=== PATIENT | female | born 1995 | race African-American/Black ===

== ENCOUNTER 2019-03-12 16:41 | Emergency (ER) | payer OTHER, MEDICAID ==
[2019-03-12] MEDS ORDERED: TETANUS/DIPHTHERIA/PERTUSSIS 0.5 ML SYRINGE IM ONE (17:06)
[2019-03-12] MEDS ORDERED: BUFFERED LIDOCAINE 10 ML SYRINGE SUBQ STA (17:06)
--- NOTE | 2019-03-12 17:08 | ED Physician Documentation ---
PD HPI UPPER EXT INJURY - Stated complaint Stated Complaint: L THUMB LAC - Chief complaint Chief Complaint: Laceration - History obtained from History obtained from: Patient - History of Present Illness Location: Left (Right-handed woman with unknown tetanus status cuts the dorsum of her left thumb at work just prior to arrival.) Review of Systems Constitutional: reports: Reviewed and negative Ears: reports: Reviewed and negative Throat: reports: Reviewed and negative PD PAST MEDICAL HISTORY - Past Medical History Past Medical History: No Cardiovascular: None Respiratory: None Neuro: None Endocrine/Autoimmune: None GI: None 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 : None HEENT: None Psych: ADD/ADHD Musculoskeletal: None Derm: None - Past Surgical History Past Surgical History: No - Present Medications Home Medications: Ambulatory Orders Medication Instructions Recorded Confirmed Ethynodiol D-Ethinyl Estradiol 1 each PO 07/18/13 07/18/13 [Zovia 1-35E] FLUoxetine [PROzac] 40 mg PO DAILY 07/18/13 07/18/13 Guanfacine HCl 1 mg PO BID 07/18/13 07/18/13 Melatonin 5 mg PO 07/18/13 07/18/13 Methylphenidate HCl 36 mg PO BID 07/18/13 07/18/13 [Methylphenidate ER] - Allergies Allergies/Adverse Reactions: Allergies Allergy/AdvReac Type Severity Reaction Status Date / Time No Known Drug Allergies Allergy Verified 03/12/19 16:46 - Social History Does the pt smoke?: No Smoking Status: Never smoker Does the pt drink ETOH?: Yes Does the pt have substance abuse?: No - Immunizations Immunizations are current?: Yes - POLST Patient has POLST: No PD ED PE NORMAL - Vitals Vital signs reviewed: Yes - General General: Alert and oriented X 3, No acute distress - Extremities Extremities: Other (At the level of the interphalangeal joint of the left thumb there is a 1.5 cm laceration over onto the ulnar side. She is partially but not In completely insensate distal to that. She describes sensation as about being half-strength.) - Neuro Neuro: Alert and oriented X 3, Normal speech Results - Vitals Vitals: Vital Signs - 24 hr 03/12/19 16:44 Temperature 36.3 C L Heart Rate 94 Respiratory 18 Rate Blood Pressure 136/90 H O2 Saturation 98 Oxygen O2 Source Room air Procedures - Laceration (location) L thumb Length in cm: 1.5 Wound type: Linear, Clean Neurovascular status: No: Sensory intact (prtial nerve inj) Tendon involvement: Tendon intact Anesthesia: Lidocaine 1%, With bicarb Wound Preparation: Irrigated copiously NS Skin layer closure: Nylon, Interrupted, Size #-0 - enter number (5-0), Sutures - enter # (4) Other: Tetanus booster given Complexity: Simple Departure - Departure Disposition: 01 Home, Self Care Clinical Impression: Finger laceration with complication Qualifiers: Encounter type: initial encounter Qualified Code(s): S61.219A - Laceration without foreign body of unspecified finger without damage to nail, initial encounter Condition: Good Record reviewed to determine appropriate education?: Yes Instructions: ED Laceration Hand Comments: As discussed you have a laceration with a partial nerve injury in your finger. You need to follow-up with hand surgeon within the next 3 days. The closest is in [place], call Dr. Swan at [phone] Subsequent to that for wound care keep it clean with soap and water and keep it covered with a bandage and Vaseline. The sutures need to come out in about 14 days.
[2019-03-12 18:05] VITALS: BP 121/89
== END 2019-03-12 18:06 | disposition home or self-care (01) ==
LOC: ED 16:41
DX: S61.012A Laceration without foreign body of left thumb without damage to nail, initial encounter (principal); W26.0XXA Contact with knife, initial encounter; Y99.0 Civilian activity done for income or pay
CPT/HCPCS: 1040M; 12001; 99282; 99283

== ENCOUNTER 2021-05-22 13:35 | Emergency (ER) | payer MEDICAID, OTHER ==
[2021-05-22 13:42] VITALS: BP 133/82
[2021-05-22] MEDS ORDERED: BUFFERED LIDOCAINE 10 ML SYRINGE SUBQ STA (13:52)
[2021-05-22] MEDS ORDERED: BACITRACIN ZINC OINT 1 PACKET TOP STA (13:52)
[2021-05-22] MEDS ORDERED: TETANUS/DIPHTHERIA/PERTUSSIS 0.5 ML SYRINGE IM ONE (13:52)
--- NOTE | 2021-05-22 14:22 | ED Physician Documentation ---
History of Present Illness - Stated complaint Stated Complaint: L PINKY LAC - Chief complaint Chief Complaint: Laceration - History obtained from History obtained from: Patient - Additonal information Additional information: 25-year-old woman Presents with left fifth finger laceration while cutting onions at work. This occurred just prior to arrival. She is unsure of her last tetanus. 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 : None HEENT: None Psych: ADD/ADHD Musculoskeletal: None Derm: None - Past Surgical History Past Surgical History: No - Present Medications Home Medications: Ambulatory Orders Medication Instructions Recorded Confirmed Ethynodiol D-Ethinyl Estradiol 1 each PO 07/18/13 07/18/13 [Zovia 1-35E] FLUoxetine [PROzac] 40 mg PO DAILY 07/18/13 07/18/13 Guanfacine HCl 1 mg PO BID 07/18/13 07/18/13 Melatonin 5 mg PO 07/18/13 07/18/13 Methylphenidate HCl 36 mg PO BID 07/18/13 07/18/13 [Methylphenidate ER] - Allergies Allergies/Adverse Reactions: Allergies Allergy/AdvReac Type Severity Reaction Status Date / Time No Known Drug Allergies Allergy Verified 05/22/21 13:39 - Social History Does the pt smoke?: No Smoking Status: Never smoker Does the pt drink ETOH?: Yes Does the pt have substance abuse?: No - Immunizations Immunizations are current?: Yes - POLST Patient has POLST: No PD ED PE NORMAL - Vitals Vital signs reviewed: Yes - General General: Alert and oriented X 3, No acute distress, Well developed/nourished - HEENT HEENT: Atraumatic, PERRL, EOMI - Derm Derm: Other (0.5 cm laceration of distal left fifth finger with involvement of the nail. No subungual hematoma or nailbed involvement. Laceration well approximated and superficial.) - Extremities Extremities: No deformity - Neuro Neuro: Alert and oriented X 3 - Psych Psych: Normal mood, Normal affect Results - Vitals Vitals: Vital Signs - 24 hr 05/22/21 13:39 Temperature 36.5 C Heart Rate 78 Respiratory 16 Rate Blood Pressure 133/82 H O2 Saturation 100 Oxygen O2 Source Room air Procedures - Laceration (location) Finger left Length in cm: 0.5 Wound type: Curved Neurovascular status: Sensory intact, Motor intact Tendon involvement: Tendon intact Anesthesia: Lidocaine 1%, With bicarb Wound preparation: Irrigated copiously NS, Wound explored, To the base. No: FB identified Skin layer closure: Dermabond Other: Patient tolerated well, No complications, Neurovascular intact, Tetanus booster given PD MEDICAL DECISION MAKING - ED course ED course: 25-year-old woman presented with superficial well approximated laceration of the left fifth finger after cutting vegetables. [id number]. Laceration repaired with Dermabond after cleaning extensively. Return precautions given. Departure - Departure Disposition: 01 Home, Self Care Clinical Impression: Laceration of finger Condition: Good Instructions: ED Laceration Ext Skin Glue Comments: You are seen in the emergency department for laceration of your finger. I repai red it with Dermabond skin glue. Allow it to fall off on its own and monitor for any signs of infection. Return to the emergency department if you have any new or worsening symptoms or other concerns. We updated your tetanus shot and you should be good for 10 years.
== END 2021-05-22 14:25 | disposition home or self-care (01) ==
LOC: ED 13:35
DX: S61.317A Laceration without foreign body of left little finger with damage to nail, initial encounter (principal); W26.0XXA Contact with knife, initial encounter; Y93.G1 Activity, food preparation and clean up; Y99.0 Civilian activity done for income or pay; Z23 Encounter for immunization
CPT/HCPCS: 1040M; 12001; 90471; 90715; 99281; 99283; A9270

== ENCOUNTER 2021-08-27 13:44 | Emergency (ER) | payer MEDICAID | END 2021-08-27 13:52 | disposition left against medical advice (07) | LOC: ED 13:44 | DX: Z53.21 Procedure and treatment not carried out due to patient leaving prior to being seen by health care provider (principal) ==

== ENCOUNTER 2021-10-08 09:46 | Outpatient (CLI) | payer MEDICAID ==
[2021-10-08 12:15] LABS: BASOPHILS # (AUTO) 0.1 10^3/uL (0.0-0.1); EOSINOPHILS # (AUTO) 0.2 10^3/uL (0.0-0.7); EOSINOPHILS % (AUTO) 2.8 %; HCT - HEMATOCRIT 37.3 % (37.0-47.0); HGB - HEMOGLOBIN 11.9 g/dL (12.0-16.0); LYMPHOCYTES # (AUTO) 3.1 10^3/uL (1.5-3.5); LYMPHOCYTES % (AUTO) 44.3 %; MEAN CORPUSCULAR HEMOGLOBIN 26.4 pg (27.0-31.0); MEAN CORPUSCULAR HGB CONC 31.9 g/dL (32.0-36.0); MEAN CORPUSCULAR VOLUME 82.9 fL (81.0-99.0); MEAN PLATELET VOLUME 12.3 fL (7.9-10.8); MONOCYTES # (AUTO) 0.4 10^3/uL (0.0-1.0); MONOCYTES % (AUTO) 6.1 %; NEUTROPHILS # (AUTO) 3.1 10^3/uL (1.5-6.6); NEUTROPHILS % (AUTO) 45.7 %; PLT - PLATELET COUNT 312 10^3/uL (130-450); RED CELL DISTRIBUTION WIDTH 15.7 % (12.0-15.0); WHITE BLOOD COUNT 6.9 x10^3/uL (4.8-10.8)
[2021-10-08 12:34] LABS: ALBUMIN 4.1 g/dL (3.2-5.5); ALBUMIN/GLOBULIN RATIO 1.2 (1.0-2.2); ALKALINE PHOSPHATASE 49 IU/L (42-121); ALT ALANINE AMINOTRANSFERASE 17 IU/L (10-60); AST ASPARTATE AMINOTRANSFERASE 15 IU/L (10-42); BILIRUBIN,TOTAL 0.6 mg/dL (0.2-1.0); BUN - BLOOD UREA NITROGEN 15 mg/dL (6-20); CALCIUM 9.2 mg/dL (8.5-10.3); CARBON DIOXIDE - CO2 28 mmol/L (21-32); CHLORIDE 102 mmol/L (101-111); CHOLESTEROL 197 mg/dL; CREATININE 0.9 mg/dL (0.4-1.0); GFR - MDRD 93 (>89); GLUCOSE 96 mg/dL (70-100); HDL CHOLESTEROL 66 mg/dL; LDL CHOLESTEROL,CALCULATED 113 mg/dL; LDL/HDL RATIO 1.7 (<4.4); SODIUM 137 mmol/L (135-145); TOTAL PROTEIN 7.6 g/dL (6.7-8.2); TRIGLYCERIDES 90 mg/dL; VLDL CHOLESTEROL 18 mg/dL
[2021-10-08 12:41] LABS: THYROID STIMULATING HORMONE 1.93 uIU/mL (0.34-5.60)
== END 2021-10-08 09:47 | disposition home or self-care (01) ==
LOC: LAB.N 09:46
PROVIDERS: ATTEND Physician Assistant Medical
DX: Z00.00 Encounter for general adult medical examination without abnormal findings (principal)
CPT/HCPCS: 36415; 80053; 80061; 83721; 84443; 85025

== ENCOUNTER 2021-10-25 11:05 | Emergency (ER) | payer MEDICAID ==
--- NOTE | 2021-10-25 11:53 | ED Physician Documentation ---
PD HPI SYNCOPE - Stated complaint Stated Complaint: FAINTING, CONFUSION - Chief complaint Chief Complaint: Neuro - History obtained from History obtained from: Patient - History of Present Illness Witnessed: Unwitnessed Timing - onset: How many days ago (she states has felt lightheaded at times the past few days, with presumed syncope today (she flet lightheaded, then awoke in other part of the room - not feeling injured).) Duration: Unknown Preceding symptoms: Light headed. No: Headache, Chest pain, Abdominal pain, Nausea / vomiting Associated symptoms: Abdominal pain. No: Seizure, Incontinant of urine, Headache, Chest pain Contributing factors: Recent med change (started fluoxetine and guianfacine 2 weeks ago at low doses. Had been on both in the past about a year ago, stopped due to doing well. Resumed meds 2 weeks ago.), Decreased PO intake (the past day or so), Just stood up. No: Noxious stimulae Injury occurred: No: Fell, Head injury, Neck injury Similar symptoms before: Has not had sx before Recently seen: Clinic Review of Systems Constitutional: denies: Fever, Chills Nose: denies: Rhinorrhea / runny nose, Congestion Throat: denies: Sore throat Respiratory: denies: Cough GI: reports: Nausea. 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 : None HEENT: None Psych: Anxiety, ADD/ADHD Musculoskeletal: None Derm: None - Past Surgical History Past Surgical History: No - Present Medications Home Medications: Ambulatory Orders Medication Instructions Recorded Confirmed Ethynodiol D-Ethinyl Estradiol 1 each PO 07/18/13 07/18/13 [Zovia 1-35E] FLUoxetine [PROzac] 40 mg PO DAILY 07/18/13 07/18/13 Guanfacine HCl 1 mg PO BID 07/18/13 07/18/13 Melatonin 5 mg PO 07/18/13 07/18/13 Methylphenidate HCl 36 mg PO BID 07/18/13 07/18/13 [Methylphenidate ER] - Allergies Allergies/Adverse Reactions: Allergies Allergy/AdvReac Type Severity Reaction Status Date / Time No Known Drug Allergies Allergy Verified 10/25/21 11:20 - Social History Does the pt smoke?: No Smoking Status: Never smoker Does the pt drink ETOH?: Yes Does the pt have substance abuse?: No - Immunizations Immunizations are current?: Yes - POLST Patient has POLST: No PD ED PE NORMAL - Vitals Vital signs reviewed: Yes - General General: Alert and oriented X 3, No acute distress, Well developed/nourished - HEENT HEENT: Atraumatic, PERRL, EOMI - Neck Neck: Supple, no meningeal sign, No bony TTP, No adenopathy - Cardiac Cardiac: RRR, No murmur - Respiratory Respiratory: Clear bilaterally - Abdomen Abdomen: Soft, Non tender - Back Back: No CVA TTP, No spinal TTP - Derm Derm: Normal color - Extremities Extremities: No tenderness to palpate, Normal ROM s pain, No edema, No calf tenderness / cord - Neuro Neuro: Alert and oriented X 3, No motor deficit, Normal speech Results - Vitals Vitals: Vital Signs - 24 hr 10/25/21 10/25/21 10/25/21 11:21 13:07 13:24 Temperature 36.5 C Heart Rate 74 56 L Heart Rate [ 64 Sitting] Heart Rate [ 65 Standing] Heart Rate [ 59 L Supine] Respiratory 16 18 Rate Blood Pressure 146/66 H 109/64 Blood Pressure 116/66 [Sitting] Blood Pressure 109/64 [Standing] Blood Pressure 110/67 [Supine] O2 Saturation 100 100 Oxygen O2 Source Room air - Labs Labs: Laboratory Tests 10/25/21 10/25/21 10/25/21 12:39 12:39 12:39 WBC 6.0 RBC 4.45 Hgb 11.8 L Hct 36.9 L MCV 82.9 MCH 26.5 L MCHC 32.0 RDW 15.1 H Plt Count 290 MPV 11.8 H Neut # (Auto) 2.9 Lymph # (Auto) 2.5 [place] # (Auto) 0.4 Eos # (Auto) 0.2 Baso # (Auto) 0.1 Absolute Nucleated RBC 0.00 Nucleated RBC % 0.0 Sodium 135 Potassium 4.0 Chloride 99 L Carbon Dioxide 26 Anion Gap 10.0 BUN 11 Creatinine 1.1 H Estimated GFR (MDRD) 74 L Glucose 91 Calcium 9.2 Total Bilirubin 0.6 AST 15 ALT 16 Alkaline Phosphatase 49 Troponin I High Sens B-Natriuretic Peptide 45 Total Protein 7.7 Albumin 3.9 Globulin 3.8 Albumin/Globulin Ratio 1.0 Lipase 23 TSH Urine Color Urine Clarity Urine pH Ur Specific [place] Urine Protein Urine Glucose (UA) Urine Ketones Urine Occult Blood Urine Nitrite Urine Bilirubin Urine Urobilinogen Ur Leukocyte Esterase Ur Microscopic Review Urine Culture Comments Urine HCG, Qual 10/25/21 10/25/21 10/25/21 12:39 12:39 12:45 WBC RBC Hgb Hct MCV MCH MCHC RDW Plt Count MPV Neut # (Auto) Lymph # (Auto) [place] # (Auto) Eos # (Auto) Baso # (Auto) Absolute Nucleated RBC Nucleated RBC % Sodium Potassium Chloride Carbon Dioxide Anion Gap BUN Creatinine Estimated GFR (MDRD) Glucose Calcium Total Bilirubin AST ALT Alkaline Phosphatase Troponin I High Sens < 2.3 L B-Natriuretic Peptide Total Protein Albumin Globulin Albumin/Globulin Ratio Lipase TSH 1.82 Urine Color YELLOW Urine Clarity CLEAR Urine pH 6.5 Ur Specific [place] 1.020 Urine Protein NEGATIVE Urine Glucose (UA) NEGATIVE Urine Ketones NEGATIVE Urine Occult Blood NEGATIVE Urine Nitrite NEGATIVE Urine Bilirubin NEGATIVE Urine Urobilinogen 1 (NORMAL) Ur Leukocyte Esterase NEGATIVE Ur Microscopic Review NOT INDICATED Urine Culture Comments NOT INDICATED Urine HCG, Qual NEGATIVE PD MEDICAL DECISION MAKING - ED course Complexity details: considered differential (low BP on arrival. had not had good oral intake the past day. Testing normal here. BP relatively low and HR 56. BP improved with IV fluids. ), d/w patient ED course: referencing her new meds in [facility], the Guianfacine has syncope as possible side effect and conductive problems. Her ECG is okay, with mild tachycardia. I think that med more than the fluoxetine cold cause symtpoms, without other obvious cause. Departure - Departure Disposition: 01 Home, Self Care Clinical Impression: Lightheaded Syncope Qualifiers: Syncope type: unspecified Qualified Code(s): R55 - Syncope and collapse Condition: Stable Record reviewed to determine appropriate education?: Yes Instructions: ED Fainting Unkn Cause Comments: Stay well-hydrated. Your basic blood tests your normal with the exception of a minimal anemia but not enough to account for your symptoms. I would suppose that your symptoms may relate to the recent medications. In referencing the side effects of both, it would seem more likely the guanfacine would lead to symptoms like this as fainting and lightheaded are listed potential side effects. At this point I would have you hold your guanfacine. Continue with the fluoxetine. Stay well-hydrated and regular diet. I would anticipate improvement over the next several days as you are off the medicine. Follow-up with your prescribing provider later this week. Call for an appointment for later this week. At that point your provider can see how you are feeling and decide if any other medication changes are needed. Discharge Date/Time: 10/25/21 14:07
[2021-10-25] MEDS ORDERED: SODIUM CHLORIDE 0.9% 1,000 ML IV STA (12:27)
[2021-10-25 12:46] LABS: BASOPHILS # (AUTO) 0.1 10^3/uL (0.0-0.1); BASOPHILS % (AUTO) 1.2 %; EOSINOPHILS # (AUTO) 0.2 10^3/uL (0.0-0.7); EOSINOPHILS % (AUTO) 2.8 %; HCT - HEMATOCRIT 36.9 % (37.0-47.0); HGB - HEMOGLOBIN 11.8 g/dL (12.0-16.0); LYMPHOCYTES # (AUTO) 2.5 10^3/uL (1.5-3.5); LYMPHOCYTES % (AUTO) 41.4 %; MEAN CORPUSCULAR HEMOGLOBIN 26.5 pg (27.0-31.0); MEAN CORPUSCULAR VOLUME 82.9 fL (81.0-99.0); MEAN PLATELET VOLUME 11.8 fL (7.9-10.8); MONOCYTES # (AUTO) 0.4 10^3/uL (0.0-1.0); MONOCYTES % (AUTO) 5.8 %; NEUTROPHILS # (AUTO) 2.9 10^3/uL (1.5-6.6); NEUTROPHILS % (AUTO) 48.6 %; PLT - PLATELET COUNT 290 10^3/uL (130-450); RED BLOOD COUNT 4.45 10^6/uL (4.20-5.40); RED CELL DISTRIBUTION WIDTH 15.1 % (12.0-15.0)
[2021-10-25 13:00] LABS: ALBUMIN 3.9 g/dL (3.2-5.5); BILIRUBIN,TOTAL 0.6 mg/dL (0.2-1.0); CALCIUM 9.2 mg/dL (8.5-10.3); CREATININE 1.1 mg/dL (0.4-1.0); TOTAL PROTEIN 7.7 g/dL (6.7-8.2)
[2021-10-25 13:02] LABS: BILIRUBIN,URINE NEGATIVE (NEGATIVE); GLUCOSE, URINE (UA) NEGATIVE (NEGATIVE); KETONES,URINE (UA) NEGATIVE (NEGATIVE); LEUKOCYTE ESTERASE, URINE NEGATIVE (NEGATIVE); NITRITE,URINE NEGATIVE (NEGATIVE); OCCULT BLOOD,URINE NEGATIVE (NEGATIVE); PH,URINE 6.5 PH (5.0-7.5); PROTEIN,URINE NEGATIVE (NEGATIVE); UROBILINOGEN,URINE 1 (NORMAL) E.U./dL (NORMAL)
[2021-10-25 13:06] LABS: CLARITY,URINE CLEAR (CLEAR); HCG UR QUAL NEGATIVE
[2021-10-25 13:27] VITALS: BP 109/64
== END 2021-10-25 14:07 | disposition home or self-care (01) ==
LOC: ED 11:05
DX: R42 Dizziness and giddiness (principal); R55 Syncope and collapse; R11.0 Nausea; I95.9 Hypotension, unspecified
CPT/HCPCS: 36415; 80053; 81001; 81003; 81025; 83690; 83880; 84443; 84484; 85025; 87086; 93005; 99283

== ENCOUNTER 2022-01-02 09:44 | Outpatient (CLI) | payer MEDICAID | END 2022-01-02 09:45 | disposition critical access hospital (66) | LOC: EMS 09:44 | DX: T46.5X2A Poisoning by other antihypertensive drugs, intentional self-harm, initial encounter (principal) | CPT/HCPCS: A0425; A0429; A0999 ==

== ENCOUNTER 2022-01-02 10:03 | Observation (INO) | payer MEDICAID ==
[2022-01-02] MEDS ORDERED: SODIUM CHLORIDE 0.9% 1,000 ML IV STA (10:21)
--- NOTE | 2022-01-02 10:21 | ED Physician Documentation ---
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 She states that this was an attempt to kill herself. There are 2 mg tablets. The prescription was filled on 12/09/2021 a friend called EMS and she was brought to the emergency department. Currently she states she feels tired. 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 HEENT: None Psych: Depression, Anxiety, ADD/ADHD, Post traumatic stress disorder Musculoskeletal: None Derm: None - Past Surgical History Past Surgical History: No - Present Medications Home Medications: Ambulatory Orders Medication Instructions Recorded Confirmed Ethynodiol D-Ethinyl Estradiol 1 each PO 07/18/13 07/18/13 [Zovia 1-35E] FLUoxetine [PROzac] 40 mg PO DAILY 07/18/13 07/18/13 Guanfacine HCl 1 mg PO BID 07/18/13 07/18/13 Melatonin 5 mg PO 07/18/13 07/18/13 Methylphenidate HCl 36 mg PO BID 07/18/13 07/18/13 [Methylphenidate ER] - Allergies Allergies/Adverse Reactions: Allergies Allergy/AdvReac Type Severity Reaction Status Date / Time No Known Drug Allergies Allergy Verified 01/02/22 10:14 - Social History Does the pt smoke?: No Smoking Status: Never smoker Does the pt drink ETOH?: Yes Does the pt have substance abuse?: Yes Substance Use and Type: Marijuana - Immunizations Immunizations are current?: Yes - POLST Patient has POLST: No PD ED PE NORMAL - Vitals Vital signs reviewed: Yes - General General: Alert and oriented X 3, No acute distress - HEENT HEENT: PERRL - Neck Neck: Supple, no meningeal sign - Cardiac Cardiac: RRR, Strong equal pulses - Respiratory Respiratory: No respiratory distress, Clear bilaterally - Abdomen Abdomen: Soft, Non tender, Non distended - Derm Derm: Warm and dry - Extremities Extremities: No edema - Neuro Neuro: Alert and oriented X 3 - Psych Psych: Normal mood, Normal affect Results - Vitals Vitals: Vital Signs - 24 hr 01/02/22 01/02/22 01/02/22 10:14 10:36 11:02 Temperature 37 C Heart Rate 73 65 66 Respiratory 16 14 12 Rate Blood Pressure 114/70 124/82 H 126/78 O2 Saturation 100 100 97 01/02/22 01/02/22 01/02/22 11:30 12:00 12:32 Temperature Heart Rate 68 72 62 Respiratory 14 15 13 Rate Blood Pressure 135/89 H 127/82 H 130/95 H O2 Saturation 99 98 99 01/02/22 13:00 Temperature Heart Rate 54 L Respiratory 14 Rate Blood Pressure 127/80 O2 Saturation 100 Oxygen O2 Source Room air - EKG (time done) 1024 Rate: Rate (enter#) (70) Rhythm: NSR [place]: Normal Intervals: Normal MA QRS: Normal Ischemia: Normal ST segments - Labs Labs: Laboratory Tests 01/02/22 01/02/22 01/02/22 10:21 10:30 10:42 WBC 5.4 RBC 4.46 Hgb 11.8 L Hct 36.7 L MCV 82.3 MCH 26.5 L MCHC 32.2 RDW 16.2 H Plt Count 286 MPV 11.6 H Neut # (Auto) 2.8 Lymph # (Auto) 2.1 [place] # (Auto) 0.3 Eos # (Auto) 0.1 Baso # (Auto) 0.1 Absolute Nucleated RBC 0.00 Nucleated RBC % 0.0 Sodium Potassium Chloride Carbon Dioxide Anion Gap BUN Creatinine Estimated GFR (MDRD) Glucose Calcium Total Bilirubin AST ALT Alkaline Phosphatase Total Protein Albumin Globulin Albumin/Globulin Ratio Lipase TSH Urine Color YELLOW Urine Clarity CLEAR Urine pH 6.0 Ur Specific [place] 1.025 Urine Protein NEGATIVE Urine Glucose (UA) NEGATIVE Urine Ketones NEGATIVE Urine Occult Blood TRACE-INTA Urine Nitrite NEGATIVE Urine Bilirubin NEGATIVE Urine Urobilinogen 0.2 (NORMAL) Ur Leukocyte Esterase SMALL H Urine RBC 0-5 Urine WBC 4-5 Ur Squamous Epith Cells FEW Squamous Urine Bacteria Rare Ur Microscopic Review INDICATED Urine Culture Comments INDICATED Urine HCG, Qual NEGATIVE Nasal Adenovirus (PCR) NOT DETECTED Nasal B. parapertussis DNA (PCR) NOT DETECTED Nasal Coronavir 229E PCR NOT DETECTED Nasal Coronavir HKU1 PCR NOT DETECTED Nasal Coronavir NL63 PCR NOT DETECTED Nasal Coronavir OC43 PCR NOT DETECTED Nasal Enterovir/Rhinovir PCR NOT DETECTED Nasal Influenza B PCR NOT DETECTED Nasal Influenza A PCR NOT DETECTED Nasal Parainfluen 1 PCR NOT DETECTED Nasal Parainfluen 2 PCR NOT DETECTED Nasal Parainfluen 3 PCR NOT DETECTED Nasal Parainfluen 4 PCR DETECTED A Nasal RSV (PCR) NOT DETECTED Nasal B.pertussis DNA PCR NOT DETECTED Nasal C.pneumoniae (PCR) NOT DETECTED Anshu Human Metapneumo PCR NOT DETECTED Nasal M.pneumoniae (PCR) NOT DETECTED Nasal SARS-CoV-2 (PCR) NOT DETECTED Salicylates Urine Opiates Screen NEGATIVE Ur Oxycodone Screen NEGATIVE Urine Methadone Screen NEGATIVE Ur Propoxyphene Screen NEGATIVE Acetaminophen Ur Barbiturates Screen NEGATIVE Ur Tricyclics Screen NEGATIVE Ur Phencyclidine Scrn NEGATIVE Ur Amphetamine Screen NEGATIVE U Methamphetamines Scrn NEGATIVE U Benzodiazepines Scrn NEGATIVE Urine Cocaine Screen NEGATIVE U Cannabinoids Screen POSITIVE H Ethyl Alcohol 01/02/22 01/02/22 10:42 10:42 WBC RBC Hgb Hct MCV MCH MCHC RDW Plt Count MPV Neut # (Auto) Lymph # (Auto) [place] # (Auto) Eos # (Auto) Baso # (Auto) Absolute Nucleated RBC Nucleated RBC % Sodium 134 L Potassium 3.9 Chloride 102 Carbon Dioxide 23 Anion Gap 9.0 BUN 15 Creatinine 0.9 Estimated GFR (MDRD) 93 Glucose 187 H Calcium 9.1 Total Bilirubin 0.7 AST 17 ALT 18 Alkaline Phosphatase 41 L Total Protein 7.4 Albumin 4.2 Globulin 3.2 Albumin/Globulin Ratio 1.3 Lipase 30 TSH 2.16 Urine Color Urine Clarity Urine pH Ur Specific [place] Urine Protein Urine Glucose (UA) Urine Ketones Urine Occult Blood Urine Nitrite Urine Bilirubin Urine Urobilinogen Ur Leukocyte Esterase Urine RBC Urine WBC Ur Squamous Epith Cells Urine Bacteria Ur Microscopic Review Urine Culture Comments Urine HCG, Qual Nasal Adenovirus (PCR) Nasal B. parapertussis DNA (PCR) Nasal Coronavir 229E PCR Nasal Coronavir HKU1 PCR Nasal Coronavir NL63 PCR Nasal Coronavir OC43 PCR Nasal Enterovir/Rhinovir PCR Nasal Influenza B PCR Nasal Influenza A PCR Nasal Parainfluen 1 PCR Nasal Parainfluen 2 PCR Nasal Parainfluen 3 PCR Nasal Parainfluen 4 PCR Nasal RSV (PCR) Nasal B.pertussis DNA PCR Nasal C.pneumoniae (PCR) Anshu Human Metapneumo PCR Nasal M.pneumoniae (PCR) Nasal SARS-CoV-2 (PCR) Salicylates < 6.0 Urine Opiates Screen Ur Oxycodone Screen Urine Methadone Screen Ur Propoxyphene Screen Acetaminophen < 10 L Ur Barbiturates Screen Ur Tricyclics Screen Ur Phencyclidine Scrn Ur Amphetamine Screen U Methamphetamines Scrn U Benzodiazepines Scrn Urine Cocaine Screen U Cannabinoids Screen Ethyl Alcohol < 5.0 PD MEDICAL DECISION MAKING - ED course Complexity details: reviewed results, re-evaluated patient, considered differential, d/w patient, 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 They recommend monitoring for sedation, bradycardia and hy potension. In some cases large doses of Narcan can be effective. The treatment is supportive care. Recommends at least a 24-hour observation. Patient is drowsy here. Discussed the case with the hospitalist, Dr. Soto who accepts. This document was made in part using voice recognition software. While efforts are made to proofread this document, sound alike and grammatical errors may occur. Departure - Departure Disposition: ED Place in Observation Clinical Impression: Suicidal ideation Intentional overdose Qualifiers: Encounter type: initial encounter Qualified Code(s): T50.902A - Poisoning by unspecified drugs, medicaments and biological substances, intentional self-harm, initial encounter Condition: Stable
[2022-01-02 10:45] LABS: BILIRUBIN,URINE NEGATIVE (NEGATIVE); GLUCOSE, URINE (UA) NEGATIVE (NEGATIVE); KETONES,URINE (UA) NEGATIVE (NEGATIVE); LEUKOCYTE ESTERASE, URINE SMALL (NEGATIVE); NITRITE,URINE NEGATIVE (NEGATIVE); OCCULT BLOOD,URINE TRACE-INTA (NEGATIVE); PROTEIN,URINE NEGATIVE (NEGATIVE); UROBILINOGEN,URINE 0.2 (NORMAL) E.U./dL (NORMAL)
[2022-01-02 10:47] LABS: CLARITY,URINE CLEAR (CLEAR); HCG UR QUAL NEGATIVE
[2022-01-02 10:48] LABS: MUDS CUTOFF CONCENTRATIONS CUTOFF CONC BELOW:
[2022-01-02 10:49] LABS: BASOPHILS # (AUTO) 0.1 10^3/uL (0.0-0.1); BASOPHILS % (AUTO) 1.1 %; EOSINOPHILS # (AUTO) 0.1 10^3/uL (0.0-0.7); EOSINOPHILS % (AUTO) 2.6 %; HCT - HEMATOCRIT 36.7 % (37.0-47.0); HGB - HEMOGLOBIN 11.8 g/dL (12.0-16.0); LYMPHOCYTES # (AUTO) 2.1 10^3/uL (1.5-3.5); LYMPHOCYTES % (AUTO) 39.3 %; MEAN CORPUSCULAR HEMOGLOBIN 26.5 pg (27.0-31.0); MEAN CORPUSCULAR HGB CONC 32.2 g/dL (32.0-36.0); MEAN CORPUSCULAR VOLUME 82.3 fL (81.0-99.0); MEAN PLATELET VOLUME 11.6 fL (7.9-10.8); MONOCYTES # (AUTO) 0.3 10^3/uL (0.0-1.0); MONOCYTES % (AUTO) 4.8 %; NEUTROPHILS # (AUTO) 2.8 10^3/uL (1.5-6.6); PLT - PLATELET COUNT 286 10^3/uL (130-450); RED BLOOD COUNT 4.46 10^6/uL (4.20-5.40); RED CELL DISTRIBUTION WIDTH 16.2 % (12.0-15.0); WHITE BLOOD COUNT 5.4 x10^3/uL (4.8-10.8)
[2022-01-02 10:52] LABS: BACTERIA,URINE Rare /HPF (None Seen); RBC,URINE 0-5 /HPF (0-5); SQUAMOUS EPITHELIAL CELL,UR FEW Squamous (<= Few)
[2022-01-02 10:56] LABS: AMPHETAMINE SCREEN,URINE NEGATIVE (NEGATIVE); BARBITURATE SCREEN,UR NEGATIVE (NEGATIVE); BENZODIAZEPINES SCREEN, URINE NEGATIVE (NEGATIVE); COCAINE SCREEN URINE NEGATIVE (NEGATIVE); METHADONE SCREEN, URINE NEGATIVE (NEGATIVE); METHAMPHETAMINES SCREEN, URINE NEGATIVE (NEGATIVE); OPIATE SCREEN, URINE NEGATIVE (NEGATIVE); OXYCODONE SCREEN, URINE NEGATIVE (NEGATIVE); PROPOXYPHENE SCREEN, URINE NEGATIVE (NEGATIVE); THC CANNABINOID SCREEN, URINE POSITIVE (NEGATIVE); TRICYCLIC ANTIDEPRESSANT,URINE NEGATIVE (NEGATIVE)
[2022-01-02 11:04] LABS: ACETAMINOPHEN < 10 ug/mL (10-30); ALBUMIN 4.2 g/dL (3.2-5.5); ALBUMIN/GLOBULIN RATIO 1.3 (1.0-2.2); ALKALINE PHOSPHATASE 41 IU/L (42-121); ALT ALANINE AMINOTRANSFERASE 18 IU/L (10-60); AST ASPARTATE AMINOTRANSFERASE 17 IU/L (10-42); BILIRUBIN,TOTAL 0.7 mg/dL (0.2-1.0); BUN - BLOOD UREA NITROGEN 15 mg/dL (6-20); CALCIUM 9.1 mg/dL (8.5-10.3); CARBON DIOXIDE - CO2 23 mmol/L (21-32); CHLORIDE 102 mmol/L (101-111); CREATININE 0.9 mg/dL (0.4-1.0); ETOH - ETHANOL < 5.0 mg/dL; GFR - MDRD 93 (>89); GLUCOSE 187 mg/dL (70-100); LIPASE 30 U/L (22-51); POTASSIUM 3.9 mmol/L (3.5-5.0); SALICYLATE < 6.0 mg/dL; SODIUM 134 mmol/L (135-145); TOTAL PROTEIN 7.4 g/dL (6.7-8.2)
[2022-01-02 11:26] LABS: B. PARAPERTUSSIS- RESP PCR PAN NOT DETECTED; B. PERTUSSIS- RESP PCR PANEL NOT DETECTED; C. PNEUMONIAE- RESP PCR PANEL NOT DETECTED; CORONAVIRUS 229E-RESP PCR NOT DETECTED; CORONAVIRUS HKU1-RESP PCR NOT DETECTED; CORONAVIRUS NL63-RESP PCR NOT DETECTED; CORONAVIRUS OC43-RESP PCR NOT DETECTED; HUMAN METAPNEUMOVIRUS NOT DETECTED; INFLUENZA A- RESP PCR PANEL NOT DETECTED; INFLUENZA B - RESP PCR PANEL NOT DETECTED; M. PNEUMONIAE- RESP PCR PANEL NOT DETECTED; PARAINFLUENZA VIRUS 1 NOT DETECTED; PARAINFLUENZA VIRUS 2 NOT DETECTED; PARAINFLUENZA VIRUS 3 NOT DETECTED; PARAINFLUENZA VIRUS 4 DETECTED; RHINOVIRUS/ENTEROVIRUS NOT DETECTED; RSV- RESP PCR PANEL NOT DETECTED; SARS-CoV-2 -RESP PCR PANEL NOT DETECTED
[2022-01-02] MEDS ORDERED: SODIUM CHLORIDE FLUSH 0.9% 10 ML SYRINGE IVP PRN (14:04)
--- NOTE | 2022-01-02 14:13 | HISTORY & PHYSICAL EXAMINATION ---
Chief Complaint - Chief Complaint Chief Complaint: Suicidal with drug OD attempt History of Present Illness - Admitted From Admitted From:: ED - History Obtained From History obtained from: ED provider and the patient - History of Present Illness HPI Comment/Other: This is a 26-year-old black female with history of obesity, ADHD, depression with remote suicidal attempts when she was in middle school. 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 For unknown reason, she ingested 30 tablets of guanfacine 1 vs 2 mg tablets (her ADHD medication). Her roommate was the one that called 911. It is unclear how seem after ingestion she was in the ED, but she did not get gastric lavage. In the ED she had stable vital signs and labs. Poison control was contacted. They said that the effect of this ingestion would take 24 hours to show itself in the form of somnolence, obtundation, hypotension and bradycardia. The ED provider reached out to the Hospitalist team to place her in Observation status for watching for these side effects. She will need a mental health evaluation when she is medically stable. 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 She lives with a roomate/friend. She has no children. Living arrangement: At home Living Situation: With friend(s) Social History Notes: She smokes a lot of marijuana. She does not smoke cigarettes. She drinks alcohol very rarely, she states. No other drug use, per the patient - Substance History Abuse: Recurrent use of substance despite neg consequences: Cannabis - POLST Patient has POLST: No Meds/Allgy - Home Medications Home Medications: Ambulatory Orders Medication Instructions Recorded Confirmed Ethynodiol D-Ethinyl Estradiol 1 each PO 07/18/13 07/18/13 [Zovia 1-35E] FLUoxetine [PROzac] 40 mg PO DAILY 07/18/13 07/18/13 Guanfacine HCl 1 mg PO BID 07/18/13 07/18/13 Melatonin 5 mg PO 07/18/13 07/18/13 Methylphenidate HCl 36 mg PO BID 07/18/13 07/18/13 [Methylphenidate ER] - Allergies Allergies/Adverse Reactions: Allergies Allergy/AdvReac Type Severity Reaction Status Date / Time No Known Drug Allergies Allergy Verified 01/02/22 10:14 Review of Systems - All Other Systems All Other Systems: reports: Reviewed and negative (Pt was somnolent when I saw her and her answers were brief, she gave no details of any symptoms except for being sleepy currently.) Exam - Vital Signs Reviewed Vital Signs: Yes Vital Signs: Vital Signs x48h Temp Pulse Resp BP Pulse Ox 01/02/22 13:00 54 L 14 127/80 100 01/02/22 12:32 62 13 130/95 H 99 01/02/22 12:00 72 15 127/82 H 98 01/02/22 11:30 68 14 135/89 H 99 01/02/22 11:02 66 12 126/78 97 01/02/22 10:36 65 14 124/82 H 100 01/02/22 10:14 37 C 73 16 114/70 100 - Physical Exam General Appearance: positive: No acute distress, Lethargic Eyes Bilateral: positive: Normal inspection, PERRL, EOMI ENT: positive: ENT inspection nml, No signs of dehydration Neck: positive: Nml inspection (Obese) Respiratory: positive: No respiratory distress, Breath sounds nml Cardiovascular: positive: Regular rate & rhythm, No murmur Abdomen: positive: Non-tender, No distention (Onese) Skin: positive: Warm, Dry Extremities: positive: Non-tender, No pedal edema Neurologic/Psychiatric: positive: Oriented x3, Other (Lethargic but awakens and opens eyes briefly. Speech is normal. Exam is non-focal.) Conclusion/Plan - Problem List (1) Suicidal ideation Conclusion/Plan: The patient voiced that she was suicidal. Will admit to observe her and order one-to-one monitoring for suicide watch. When medically cleared, will order a mental health evaluation by JT. (2) Intentional overdose Conclusion/Plan: As per presentation. We will admit to the ICU, monitoring for hypersomnolence (neuro checks), obtundation, hypoxia, bradycardia and hypotension. Qualifiers: Encounter type: initial encounter Qualified Code(s): T50.902A - Poisoning by unspecified drugs, medicaments and biological substances, intentional self- harm, initial encounter (3) Cannabis use disorder, moderate, dependence Conclusion/Plan: As per history. (4) ADHD (attention deficit hyperactivity disorder) Conclusion/Plan: As per history. Awaiting for the medication list to be reconciled however will not be giving any of her medicines for ADHD because of the current ingestion/overdose. (5) Obesity Conclusion/Plan: The patient's BMI is 31 - Lab Results Fish Bones: 01/02/22 10:42 01/02/22 10:42 - Diagnostic Imaging Results Diagnostic Imaging Results: positive: Final report reviewed
[2022-01-02] MEDS: SODIUM CHLORIDE FLUSH 0.9% 10 ML SYRINGE IVP SCH (16:48)
[2022-01-03] MEDS: SODIUM CHLORIDE FLUSH 0.9% 10 ML SYRINGE IVP SCH ×3 (01:13→17:41)
[2022-01-03] MEDS: ENOXAPARIN 40 MG/0.4 ML SYRINGE SUBQ SCH (11:36)
--- NOTE | 2022-01-03 19:55 | PROVIDER PROGRESS NOTE ---
Subjective - Prog Note Date Prog Note Date: 01/03/22 - Subjective Pt reports feeling: Improved (Still lethargic, but less than yesterday.) Objective - Vital Signs/Intake & Output Vital Signs: Vital Signs Temp Pulse Resp BP Pulse Ox 01/03/22 19:00 66 14 108/73 100 01/03/22 18:00 79 19 96/58 L 100 01/03/22 17:00 36.8 C 88 14 99 01/03/22 16:00 73 14 139/108 H 99 Intake & Output: Intake & Output 12/31/21 01/01/22 01/02/22 01/03/22 23:59 23:59 23:59 23:59 Intake Total 1240 1160 Balance 1240 1160 - Objective General Appearance: positive: No acute distress, Lethargic Eyes Bilateral: positive: Normal inspection ENT: positive: ENT inspection nml Neck: positive: Nml inspection (obsese) Respiratory: positive: No respiratory distress Cardiovascular: positive: Regular rate & rhythm Abdomen: positive: Non-tender Skin: positive: Warm, Dry Extremities: positive: Non-tender, No pedal edema Neurologic/Psychiatric: positive: Oriented x3 (Non-focal) - Lab Results Fish Bones: 01/02/22 10:42 01/02/22 10:42 Assessment/Plan - Problem List (1) Suicidal ideation Impression: She remains on one-to-one monitoring because of suicidal ideation, for safety and precautions. Will need mental health evaluation for further psychiatric management once medically cleared (2) Intentional overdose Impression: When I asked her today why she took the intentional overdose, she remained silent. There is a Hx of depression and the ambulance run sheet states she had stopped her anti-depressant meds. Details are not known. Poison control had been contacted by the ED and they advised that her Guanfacine overdose will cause hypotension, bradycardia and over-sedation at 24 hours post- ingestion. She has been monitored and no bradycardia or hypotension have been seen, but she has been lethargic, sleeping alot. She was not ready for mental health eval today by , due to somnolence, I suspect tomorrow she will be medically cleared for that. Qualifiers: Encounter type: subsequent encounter Qualified Code(s): T50.902D - Poisoning by unspecified drugs, medicaments and biological substances, intentional self-harm, subsequent encounter (3) Cannabis use disorder, moderate, dependence Impression: She uses a signif amount of marijuana by smoking, per Hx (4) ADHD (attention deficit hyperactivity disorder) Impression: As per Hx No ADHD meds have been resumed since she overdosed on them. (5) Obesity Impression: As per Hx.
[2022-01-04] MEDS: SODIUM CHLORIDE FLUSH 0.9% 10 ML SYRINGE IVP SCH ×2 (03:19→08:31)
[2022-01-04 08:10] LABS: BASOPHILS # (AUTO) 0.1 10^3/uL (0.0-0.1); EOSINOPHILS # (AUTO) 0.2 10^3/uL (0.0-0.7); EOSINOPHILS % (AUTO) 2.6 %; HCT - HEMATOCRIT 38.7 % (37.0-47.0); HGB - HEMOGLOBIN 12.4 g/dL (12.0-16.0); LYMPHOCYTES # (AUTO) 2.4 10^3/uL (1.5-3.5); MEAN CORPUSCULAR HEMOGLOBIN 26.6 pg (27.0-31.0); MEAN CORPUSCULAR VOLUME 82.9 fL (81.0-99.0); MEAN PLATELET VOLUME 11.8 fL (7.9-10.8); MONOCYTES # (AUTO) 0.5 10^3/uL (0.0-1.0); MONOCYTES % (AUTO) 7.9 %; NEUTROPHILS % (AUTO) 49.3 %; PLT - PLATELET COUNT 260 10^3/uL (130-450); RED BLOOD COUNT 4.67 10^6/uL (4.20-5.40); RED CELL DISTRIBUTION WIDTH 15.9 % (12.0-15.0); WHITE BLOOD COUNT 6.1 x10^3/uL (4.8-10.8)
[2022-01-04 08:20] LABS: POTASSIUM 3.5 mmol/L (3.5-5.0)
[2022-01-04] MEDS: ENOXAPARIN 40 MG/0.4 ML SYRINGE SUBQ SCH (08:31)
[2022-01-04] MEDS ORDERED: ACETAMINOPHEN 325 MG TABLET PO PRN (08:55)
[2022-01-04] MEDS ORDERED: SODIUM CHLORIDE 0.65% NASAL SPRAY NAS PRN (10:45)
[2022-01-04] MEDS ORDERED: FLUTICASONE NASAL SPRAY NAS SCH (11:00)
[2022-01-04 12:05] LABS: ESTIMATED AVERAGE GLUCOSE 108 mg/dL (70-100); HEMOGLOBIN A1c% 5.4 % (4.27-6.07)
--- NOTE | 2022-01-04 13:43 | Discharge Plan ---
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 You also clearly tell me you have no more suicide ideation or attempt. You walk without distress, dizziness or lightheaded as well. You may resume your home medications, and followup with psychiatrist as out-pt. Care Goals: Stabilization and improvement/resolve of your medical conditions Assessment: Discussed the care plan with you, answered your questions, you understood and agreed Additional Instructions or Follow Up instructions: You may followup with your PCP in one to two weeks. Should your symptoms return or worsen, you may present to ER or call 911 for help. No Smoking: If you smoke, Please STOP! Call for help. Follow-up with: Azra Patricia PA-C [Primary Care Provider] -
--- NOTE | 2022-01-04 13:47 | DISCHARGE SUMMARY ---
Discharge Summary Admit Date: 01/02/22 Discharge Date: 01/04/22 Discharging Provider: Yusef Pike Primary Care Provider: Yuni Burton Condition at Discharge: Stable Discharge Disposition: 01 Home, Self Care Discharge Facility Name: home - DIAGNOSES Discharge Diagnoses with Status of Each Condition: (1) Suicidal ideation social insurance administrator assessed pt and believed pt can be d/c home safely. pt clearly state to me she has no more suicidal ideation or attempt. pt may followup with psychiatrist as out-pt (2) Intentional overdose Per pt's HPI, it was believed she ingested 30 tablets of guanfacine intentional. Now Patient is hemodynamic stable. I saw pt walk with, pt has no distress, dizziness or lightheaded. pt ate all her meal. social insurance administrator assessed pt and believed pt can be d/c home safely. pt clearly state to me she has no more suicidal ideation or attempt. (3) depression per pt's history. pt may resume her home meds and followup with psychiatrist as out-pt (4) ADHD (attention deficit hyperactivity disorder) No ADHD meds have been resumed since she overdosed on them. Now Patient is hemodynamic stable. pt may resume her home meds and followup with psychiatrist as out-pt. - HPI History of Present Illness: refer from Dr. Sahra King's HPI on 01/02/22 This is a 26-year-old black female with history of obesity, ADHD, depression with remote suicidal attempts when she was in middle school. 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 For unknown reason, she ingested 30 tablets of guanfacine 1 vs 2 mg tablets (her ADHD medication). Her roommate was the one that called 911. It is unclear how seem after ingestion she was in the ED, but she did not get gastric lavage. In the ED she had stable vital signs and labs. Poison control was contacted. They said that the effect of this ingestion would take 24 hours to show itself in the form of somnolence, obtundation, hypotension and bradycardia. The ED provider reached out to the Hospitalist team to place her in Observation status for watching for these side effects. She will need a mental health evaluation when she is medically stable. - ALLERGIES Allergies/Adverse Reactions: Allergies Allergy/AdvReac Type Severity Reaction Status Date / Time No Known Drug Allergies Allergy Verified 01/02/22 10:14 - MEDICATIONS Home Medications: Ambulatory Orders Medication Instructions Recorded Confirmed Ferrous Sulfate 325 mg PO DAILY 01/03/22 01/03/22 Fluoxetine HCl [Prozac] 20 mg PO DAILY 01/03/22 01/03/22 Guanfacine HCl [Intuniv] 2 mg PO QPM 01/03/22 01/03/22 Melatonin 5 mg PO QPM 01/03/22 01/03/22 desogestreL-ethinyl estradioL 1 tab PO DAILY 01/03/22 01/03/22 [Desogestrel-Ee 0.15-0.03 mg Tb] - PHYSICAL EXAM AT DISCHARGE General Appearance: positive: No acute distress, Alert. negative: Lethargic Eyes Bilateral: positive: Normal inspection, No lid inflammation ENT: positive: ENT inspection nml, No signs of dehydration. negative: Purulent nasal drainage Neck: positive: Nml inspection, Trachea midline. negative: Tracheal deviation Respiratory: positive: Chest non-tender, No respiratory distress, Breath sounds nml. negative: Wheezes Cardiovascular: positive: Regular rate & rhythm, No murmur. negative: Tachycardia, Bradycardia, Systolic murmur Peripheral Pulses: positive: 2+ Abdomen: positive: Non-tender, Nml bowel sounds, No distention. negative: Tenderness Back: positive: Nml inspection Skin: positive: Color nml, Warm, Dry. negative: Cyanosis Extremities: positive: Non-tender, Full ROM, Nml appearance Neurologic/Psychiatric: positive: Oriented x3, Motor nml, Sensation nml. 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 You also clearly tell me you have no more suicide ideation or attempt. You walk without distress, dizziness or lightheaded as well. You may resume your home medications, and followup with psychiatrist as out-pt. You may followup with your PCP in one to two weeks. Should your symptoms return or worsen, you may present to ER or call 911 for help. - TIME SPENT Time Spent in Discharge (Minutes): 30
[2022-01-04 14:25] VITALS: BP 103/63
== END 2022-01-04 14:50 | disposition home or self-care (01) ==
LOC: EDUNIT# → ED 10:03 → ICU 14:04
PROVIDERS: ADMIT Internal Medicine; ATTEND Nurse Practitioner Gerontology
DX: T46.5X2A Poisoning by other antihypertensive drugs, intentional self-harm, initial encounter (principal); F32.A Depression, unspecified; F90.9 Attention-deficit hyperactivity disorder, unspecified type; F41.9 Anxiety disorder, unspecified; E66.9 Obesity, unspecified; R45.851 Suicidal ideations; R40.0 Somnolence; F12.20 Cannabis dependence, uncomplicated; Z68.31 Body mass index [BMI] 31.0-31.9, adult; R53.83 Other fatigue; T43.206A Underdosing of unspecified antidepressants, initial encounter; Z91.128 Patient's intentional underdosing of medication regimen for other reason; Z20.822 Contact with and (suspected) exposure to COVID-19
CPT/HCPCS: 0202U; 36415; 80048; 80053; 80306; 80307; 80320; 80329; 81001; 81025; 83036; 83690; 84443; 85025; 87086; 87150; 93005; 96372; 99283; 99285; A9270; G0378; J1650; 81003

== ENCOUNTER 2022-01-21 14:31 | Emergency (ER) | payer OTHER, MEDICAID ==
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
[2022-01-21 16:01] VITALS: BP 114/70
== END 2022-01-21 16:01 | disposition home or self-care (01) ==
LOC: ED 14:31
DX: S06.0X0A Concussion without loss of consciousness, initial encounter (principal); W22.8XXA Striking against or struck by other objects, initial encounter; Y99.0 Civilian activity done for income or pay
CPT/HCPCS: 1040M; 99281; 99282

== ENCOUNTER 2022-03-10 16:04 | Outpatient (CLI) | payer MEDICAID | END 2022-03-10 23:59 | disposition critical access hospital (66) | LOC: EMS 16:04 | DX: R55 Syncope and collapse (principal) | CPT/HCPCS: A0425; A0429; A0999 ==

== ENCOUNTER 2022-03-10 16:36 | Emergency (ER) | payer MEDICAID ==
--- NOTE | 2022-03-10 16:35 | ED Physician Documentation ---
PD HPI SYNCOPE - Stated complaint Stated Complaint: SYNCOPE - Chief complaint Chief Complaint: Neuro - History obtained from History obtained from: Patient, EMS - Additional information Additional information: 26-year-old woman with depression, no history of heart disease. She has had recurrent syncopal episodes every couple of few months. Had 1 today. She was feeling dizzy and was on her way to the bathroom and passed out without injury. She was out for maybe a minute. She feels fine now. States she was seen in the hospital previously for syncope but did not follow-up with her primary care physician. Note made from chart review that she was seen here for this similarly on October 25, 2021 without specific cause identified. She denies chest pain, calf pain, pedal edema, shortness of breath. No headache. 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 : None HEENT: None Psych: Depression, Anxiety, ADD/ADHD, Post traumatic stress disorder Musculoskeletal: None Derm: None - Past Surgical History Past Surgical History: No - Present Medications Home Medications: Ambulatory Orders Medication Instructions Recorded Confirmed Ferrous Sulfate 325 mg PO DAILY 01/03/22 01/03/22 Guanfacine HCl [Intuniv] 2 mg PO QPM 01/03/22 01/03/22 Melatonin 5 mg PO QPM 01/03/22 01/03/22 desogestreL-ethinyl estradioL 1 tab PO DAILY 01/03/22 01/03/22 [Desogestrel-Ee 0.15-0.03 mg Tb] ARIPiprazole [Aripiprazole] 10 mg PO 03/10/22 - Allergies Allergies/Adverse Reactions: Allergies Allergy/AdvReac Type Severity Reaction Status Date / Time No Known Drug Allergies Allergy Verified 03/10/22 16:47 - Social History Does the pt smoke?: No Smoking Status: Never smoker Does the pt drink ETOH?: Yes Does the pt have substance abuse?: No - Immunizations Immunizations are current?: Yes - POLST Patient has POLST: No PD ED PE NORMAL - Vitals Vital signs reviewed: Yes - General General: Alert and oriented X 3, No acute distress - HEENT HEENT: PERRL, EOMI - Neck Neck: Supple, no meningeal sign, No bony TTP - Cardiac Cardiac: RRR, No murmur - Respiratory Respiratory: No respiratory distress, Clear bilaterally - Abdomen Abdomen: Non tender - Extremities Extremities: No deformity, No tenderness to palpate, No edema, No calf tenderness / cord - Neuro Neuro: Alert and oriented X 3, No motor deficit, No sensory deficit, Normal speech Results - Vitals Vitals: Vital Signs - 24 hr 03/10/22 03/10/22 16:34 16:43 Temperature 36.8 C Heart Rate 79 80 Respiratory 16 14 Rate Blood Pressure 123/80 123/80 O2 Saturation 99 100 Oxygen O2 Source Room air - EKG (time done) 1655 Rate: Rate (enter#) (66) Rhythm: NSR [place]: Normal Intervals: Normal [place] QRS: Normal Ischemia: Normal ST segments - Labs Labs: Laboratory Tests 03/10/22 03/10/22 03/10/22 16:35 17:15 17:15 WBC 7.7 RBC 4.43 Hgb 11.8 L Hct 36.4 L MCV 82.2 MCH 26.6 L MCHC 32.4 RDW 15.7 H Plt Count 286 MPV 12.3 H Neut # (Auto) 4.5 Lymph # (Auto) 2.4 Reagan # (Auto) 0.4 Eos # (Auto) 0.2 Baso # (Auto) 0.1 Absolute Nucleated RBC 0.00 Nucleated RBC % 0.0 Sodium 139 Potassium 3.4 L Chloride 105 Carbon Dioxide 27 Anion Gap 7.0 BUN 16 Creatinine 1.2 H Estimated GFR (MDRD) 67 L Glucose 117 H Calcium 9.3 Total Bilirubin 0.4 AST 15 ALT 17 Alkaline Phosphatase 32 L Total Protein 7.5 Albumin 3.5 Globulin 4.0 Albumin/Globulin Ratio 0.9 L Urine Color YELLOW Urine Clarity CLEAR Urine pH 6.0 Ur Specific [place] 1.025 Urine Protein NEGATIVE Urine Glucose (UA) NEGATIVE Urine Ketones TRACE Urine Occult Blood SMALL H Urine Nitrite NEGATIVE Urine Bilirubin NEGATIVE Urine Urobilinogen 1 (NORMAL) Ur Leukocyte Esterase NEGATIVE Urine RBC None Seen Urine WBC 0-3 Ur Squamous Epith Cells RARE Squamous Urine Bacteria None Seen Ur Microscopic Review INDICATED Urine Culture Comments NOT INDICATED Urine HCG, Qual NEGATIVE PD MEDICAL DECISION MAKING - ED course ED course: 26-year-old woman with an episode of recurrent syncope. I discussed with her the importance of following up with her primary care physician given the negative ED work-up. She has modest normocytic anemia but this is not new looking at all previous labs. Departure - Departure Disposition: 01 Home, Self Care Clinical Impression: Syncope Qualifiers: Syncope type: unspecified Qualified Code(s): R55 - Syncope and collapse Condition: Good Record reviewed to determine appropriate education?: Yes Instructions: ED Fainting Unkn Cause Comments: No serious cause of your passing out episode is noted today, that said it is important to follow-up with your primary care physician for further evaluation and treatment regardless of whether or not you are feeling better. Call tomorrow for the next available appointment. Return for new or worsening symptoms.
[2022-03-10 16:53] LABS: BILIRUBIN,URINE NEGATIVE (NEGATIVE); GLUCOSE, URINE (UA) NEGATIVE (NEGATIVE); KETONES,URINE (UA) TRACE mg/dL (NEGATIVE); LEUKOCYTE ESTERASE, URINE NEGATIVE (NEGATIVE); NITRITE,URINE NEGATIVE (NEGATIVE); OCCULT BLOOD,URINE SMALL (NEGATIVE); PROTEIN,URINE NEGATIVE (NEGATIVE); UROBILINOGEN,URINE 1 (NORMAL) E.U./dL (NORMAL)
[2022-03-10 16:57] LABS: CLARITY,URINE CLEAR (CLEAR); HCG UR QUAL NEGATIVE
[2022-03-10 17:10] LABS: BACTERIA,URINE None Seen /HPF (None Seen); RBC,URINE None Seen /HPF (0-5); SQUAMOUS EPITHELIAL CELL,UR RARE Squamous (<= Few); WBC,URINE 0-3 /HPF (0-5)
[2022-03-10 17:21] LABS: BASOPHILS # (AUTO) 0.1 10^3/uL (0.0-0.1); EOSINOPHILS # (AUTO) 0.2 10^3/uL (0.0-0.7); EOSINOPHILS % (AUTO) 2.3 %; HCT - HEMATOCRIT 36.4 % (37.0-47.0); HGB - HEMOGLOBIN 11.8 g/dL (12.0-16.0); LYMPHOCYTES # (AUTO) 2.4 10^3/uL (1.5-3.5); LYMPHOCYTES % (AUTO) 31.6 %; MEAN CORPUSCULAR HEMOGLOBIN 26.6 pg (27.0-31.0); MEAN CORPUSCULAR HGB CONC 32.4 g/dL (32.0-36.0); MEAN CORPUSCULAR VOLUME 82.2 fL (81.0-99.0); MEAN PLATELET VOLUME 12.3 fL (7.9-10.8); MONOCYTES # (AUTO) 0.4 10^3/uL (0.0-1.0); MONOCYTES % (AUTO) 5.7 %; NEUTROPHILS # (AUTO) 4.5 10^3/uL (1.5-6.6); NEUTROPHILS % (AUTO) 59.1 %; PLT - PLATELET COUNT 286 10^3/uL (130-450); RED BLOOD COUNT 4.43 10^6/uL (4.20-5.40); RED CELL DISTRIBUTION WIDTH 15.7 % (12.0-15.0); WHITE BLOOD COUNT 7.7 x10^3/uL (4.8-10.8)
[2022-03-10 17:32] LABS: ALBUMIN 3.5 g/dL (3.2-5.5); ALBUMIN/GLOBULIN RATIO 0.9 (1.0-2.2); BILIRUBIN,TOTAL 0.4 mg/dL (0.2-1.0); CALCIUM 9.3 mg/dL (8.5-10.3); CREATININE 1.2 mg/dL (0.4-1.0); POTASSIUM 3.4 mmol/L (3.5-5.0); TOTAL PROTEIN 7.5 g/dL (6.7-8.2)
[2022-03-10 17:53] VITALS: BP 113/68
== END 2022-03-10 17:45 | disposition home or self-care (01) ==
LOC: ED 16:36
DX: R55 Syncope and collapse (principal)
CPT/HCPCS: 36415; 80053; 81001; 81003; 81025; 85025; 87086; 93005; 99283

== ENCOUNTER 2022-04-28 09:16 | Outpatient (CLI) | payer MEDICAID | END 2022-04-28 09:17 | disposition home or self-care (01) | LOC: MAC.MOP 09:16 | PROVIDERS: ATTEND Physician Assistant Medical | DX: R55 Syncope and collapse (principal) | CPT/HCPCS: 93246 ==

== ENCOUNTER 2022-12-15 20:18 | Emergency (ER) | payer MEDICAID ==
[2022-12-15] MEDS ORDERED: ONDANSETRON ODT 4 MG TABLET TL STA (20:30)
--- NOTE | 2022-12-15 20:43 | ED Physician Documentation ---
History of Present Illness - Stated complaint Stated Complaint: VOMITING, BODY PX - Chief complaint Chief Complaint: Fever - Additonal information Additional information: 27-year-old female presents emergency department for evaluation of subjective fevers, body aches, chills nausea and vomiting. Symptoms began 3 days ago. She also is reporting dysuria though no back pain. She states that she has been taking DayQuil, NyQuil Tylenol Motrin without relief of symptoms. Not vaccinated for the flu but is fully vaccinated for COVID including boosters Review of Systems Constitutional: reports: Fever, Chills, Myalgias, Fatigue Respiratory: denies: Dyspnea, Cough GI: reports: Nausea, Vomiting. 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 : None HEENT: None Psych: Depression, Anxiety, ADD/ADHD, Post traumatic stress disorder Musculoskeletal: None Derm: None - Past Surgical History Past Surgical History: No - Present Medications Home Medications: Ambulatory Orders Medication Instructions Recorded Confirmed Ferrous Sulfate 325 mg PO DAILY 01/03/22 01/03/22 Guanfacine HCl [Intuniv] 2 mg PO QPM 01/03/22 01/03/22 Melatonin 5 mg PO QPM 01/03/22 01/03/22 desogestreL-ethinyl estradioL 1 tab PO DAILY 01/03/22 01/03/22 [Desogestrel-Ee 0.15-0.03 mg Tb] ARIPiprazole [Aripiprazole] 10 mg PO 03/10/22 Ondansetron Odt [Zofran Odt] 4 mg TL Q6H PRN #10 tablet 12/15/22 - Allergies Allergies/Adverse Reactions: Allergies Allergy/AdvReac Type Severity Reaction Status Date / Time No Known Drug Allergies Allergy Verified 03/10/22 16:47 - Social History Does the pt smoke?: No Smoking Status: Never smoker Does the pt drink ETOH?: Yes Does the pt have substance abuse?: No - Immunizations Immunizations are current?: Yes - POLST Patient has POLST: No PD ED PE NORMAL - General General: Alert and oriented X 3, Well developed/nourished - HEENT HEENT: Atraumatic, Moist mucous membranes, Pharynx benign - Neck Neck: Supple, no meningeal sign, No adenopathy - Cardiac Cardiac: RRR, No murmur - Respiratory Respiratory: No respiratory distress, Clear bilaterally - Abdomen Abdomen: Normal bowel sounds, Soft, Non tender - Derm Derm: Normal color, Warm and dry, No rash - Extremities Extremities: No deformity, No tenderness to palpate, Normal ROM s pain - Neuro Neuro: Alert and oriented X 3, wage adjuster 2-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 Eye Opening: Spontaneous Motor: Obeys Commands Verbal: Oriented GCS Score: 15 Results - Vitals Vitals: Vital Signs - 24 hr 12/15/22 20:21 Temperature 37.0 C Heart Rate 84 Respiratory 18 Rate Blood Pressure 134/83 H O2 Saturation 100 Oxygen O2 Source Room air - Labs Labs: Laboratory Tests 12/15/22 12/15/22 12/15/22 20:37 20:37 20:37 Urine Color YELLOW Urine Clarity CLEAR Urine pH 7.0 Ur Specific [place] 1.010 Urine Protein NEGATIVE Urine Glucose (UA) NEGATIVE Urine Ketones NEGATIVE Urine Occult Blood NEGATIVE Urine Nitrite NEGATIVE Urine Bilirubin NEGATIVE Urine Urobilinogen 1 (NORMAL) Ur Leukocyte Esterase NEGATIVE Ur Microscopic Review NOT INDICATED Urine Culture Comments NOT INDICATED Urine HCG, Qual NEGATIVE Influenza A (Rapid) Negative Influenza B (Rapid) Negative PD Medical Decision Making - ED course Complexity details: re-evaluated patient, considered differential, d/w patient ED course: 27-year-old female presents emergency department for evaluation of 3 days of nausea and vomiting. She is also reporting body aches and dysuria. She is a daily cannabis user. On presentation to the emergency department she appears to feel very uncomf ortable but her cardiopulmonary and abdominal exam were benign. Urinalysis was completed and per my interpretation no findings suggest infection. Given the reported body aches influenza testing was also completed and is negative. I did defer serum testing. She had no abdominal tenderness on exam. Patient is a habitual cannabis user. She was administered 4 mg of Zofran orally here and on reevaluation is feeling markedly better now tolerating sips of clear liquids and asking to be discharged home. Etiology of her symptoms may be viral gastroenteritis though more likely cannabis hyperemesis given daily cannabis use. She was advised to abstain. Prescription for Zofran was sent to her preferred pharmacy. Emergent return precautions were discussed worsening symptoms Departure - Departure Disposition: Home, Self Care Clinical Impression: Cannabis use disorder Nausea and vomiting Qualifiers: Vomiting type: unspecified Qualified Code(s): R11.2 - Nausea with vomiting, unspecified Condition: Stable Record reviewed to determine appropriate education?: Yes Prescriptions: Ondansetron Odt [Zofran Odt] 4 mg TL Q6H PRN #10 tablet PRN Reason: Nausea / Vomiting Comments: You came in today with 3 days of nausea and vomiting. Your flu testing is negative. You do not have a urinary tract infection. You do smoke cannabis daily. I think that you may have a condition called cannabis hyperemesis syndrome. Here in the emergency department we gave you a medication called Zofran which has helped with the nausea. I encourage you to take this 2-3 times a day for the next 24 hours and drink clear liquids only. I encourage you to further abstain from cannabis use as using again could result in the same cyclic vomiting. Return to the ER with worsening symptoms.
[2022-12-15 20:54] LABS: BILIRUBIN,URINE NEGATIVE (NEGATIVE); GLUCOSE, URINE (UA) NEGATIVE (NEGATIVE); KETONES,URINE (UA) NEGATIVE (NEGATIVE); LEUKOCYTE ESTERASE, URINE NEGATIVE (NEGATIVE); NITRITE,URINE NEGATIVE (NEGATIVE); OCCULT BLOOD,URINE NEGATIVE (NEGATIVE); PROTEIN,URINE NEGATIVE (NEGATIVE); UROBILINOGEN,URINE 1 (NORMAL) E.U./dL (NORMAL)
[2022-12-15 20:59] LABS: CLARITY,URINE CLEAR (CLEAR); HCG UR QUAL NEGATIVE
[2022-12-15] MEDS ORDERED: ONDANSETRON ODT 4 MG Prepack 2 TL PRN (21:21)
[2022-12-15 21:32] VITALS: BP 120/72
== END 2022-12-15 21:31 | disposition home or self-care (01) ==
LOC: ED 20:18
DX: F12.10 Cannabis abuse, uncomplicated (principal); R11.2 Nausea with vomiting, unspecified
CPT/HCPCS: 81003; 81025; 87275; 87276; 99283; 99284; Q0162; 81001; 87086

== ENCOUNTER 2023-03-17 20:34 | Outpatient (CLI) | payer MEDICAID | END 2023-03-17 23:59 | disposition critical access hospital (66) | LOC: EMS 20:34 | DX: R10.84 Generalized abdominal pain (principal); T46.5X2A Poisoning by other antihypertensive drugs, intentional self-harm, initial encounter; T39.312A Poisoning by propionic acid derivatives, intentional self-harm, initial encounter | CPT/HCPCS: A0425; A0429; A0999 ==

== ENCOUNTER 2023-05-06 16:55 | Emergency (ER) | payer MEDICAID ==
[2023-05-06 17:04] VITALS: BP 122/77
[2023-05-06] MEDS ORDERED: CHERRY SYRUP 10 ML UDC PO ONE (17:13)
[2023-05-06] MEDS ORDERED: DEXAMETHASONE 10 MG/ML VIAL PO STA (17:13)
[2023-05-06] MEDS ORDERED: KETOROLAC 30 MG/ML VIAL IM STA (17:13)
--- NOTE | 2023-05-06 17:16 | ED Physician Documentation ---
PD HPI HEENT - Stated complaint Stated Complaint: THROAT/BODY PX - Chief complaint Chief Complaint: Heent - History obtained from History obtained from: Patient - History of Present Illness Timing - onset: How many days ago (3) Timing - duration: Days (3) Timing - details: Gradual onset, Still present Location: Throat Improves: Medication Worsens: Swalllowing Associated symptoms: Congestion, Swollen nodes Similar symptoms before: Has not had sx before Recently seen: Not recently seen - Additional information Additional information: previously well Velia Camilo has developed a sore throat about 3 days ago and the pain is unrelenting. Review of Systems Constitutional: reports: Myalgias, Fatigue. denies: Fever Eyes: denies: Decreased vision Ears: denies: Ear pain Nose: reports: Rhinorrhea / runny nose, Congestion Throat: reports: Sore throat Cardiac: denies: Chest pain / pressure, Palpitations Respiratory: denies: Dyspnea, Cough GI: reports: Nausea. 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 : None HEENT: None Psych: Depression, Anxiety, ADD/ADHD, Post traumatic stress disorder Musculoskeletal: None Derm: None - Past Surgical History Past Surgical History: No - Present Medications Home Medications: Ambulatory Orders Medication Instructions Recorded Confirmed Ferrous Sulfate 325 mg PO DAILY 01/03/22 05/06/23 Melatonin 5 mg PO QPM PRN 01/03/22 05/06/23 desogestreL-ethinyl estradioL 1 tab PO DAILY 01/03/22 05/06/23 [Desogestrel-Ee 0.15-0.03 mg Tb] ARIPiprazole [Aripiprazole] 10 mg PO DAILY 03/10/22 05/06/23 Azithromycin [Zithromax] 250 mg PO DAILY #6 tablet 05/06/23 - Allergies Allergies/Adverse Reactions: Allergies Allergy/AdvReac Type Severity Reaction Status Date / Time No Known Drug Allergies Allergy Verified 05/06/23 17:01 - Social History Does the pt smoke?: No Smoking Status: Never smoker Does the pt drink ETOH?: Yes Does the pt have substance abuse?: No - Immunizations Immunizations are current?: Yes - POLST Patient has POLST: No PD ED PE NORMAL - Vitals Vital signs reviewed: Yes (normal ) - General General: Alert and oriented X 3, No acute distress, Well developed/nourished, Other (phonal quality to the voice) - HEENT HEENT: Atraumatic, PERRL, EOMI, Other (erythema to the TM on the right side without distortion of the land schuler. Tonsils 2+ and crypitc.) - Neck Neck: Supple, no meningeal sign, No bony TTP - Cardiac Cardiac: RRR, No murmur - Respiratory Respiratory: No respiratory distress, Clear bilaterally - Abdomen Abdomen: Normal bowel sounds, Soft, Non tender, Non distended, No organomegaly - Back Back: No CVA TTP, No spinal TTP - Derm Derm: Normal color, Warm and dry, No rash - Extremities Extremities: No deformity, No edema - Neuro Neuro: Alert and oriented X 3, cooler man 2-12 intact, No motor deficit, No sensory deficit, Normal speech Eye Opening: Spontaneous Motor: Obeys Commands Verbal: Oriented GCS Score: 15 - Psych Psych: Normal mood, Normal affect Results - Vitals Vitals: Vital Signs - 24 hr 05/06/23 17:01 Temperature 36.9 C Heart Rate 83 Respiratory 18 Rate Blood Pressure 122/77 O2 Saturation 99 Oxygen O2 Source Room air - Labs Labs: Laboratory Tests 05/06/23 17:05 Group A Strep Rapid Negative PD Medical Decision Making - ED course Complexity details: considered differential, d/w patient Reviewed Lab Results: We checked a rapid strep which was negative indicating an 85% chance that this is not strep. ED course: 27-year-old female working 3 jobs has 2+ cryptic exudative tonsils and symptoms of exudative tonsillitis. She is having some difficulty swallowing and eating food and even drinking water. Her strep is negative she is administered dexamethasone 10 mg orally 30 mg of Toradol IM and we will place her on a course of azithromycin.I will provide a note for work for 3 days Departure - Departure Disposition: 01 Home, Self Care Clinical Impression: Acute tonsillitis Qualifiers: Pharyngitis/tonsillitis etiology: unspecified etiology Qualified Code(s): J03.90 - Acute tonsillitis, unspecified Condition: Stable Instructions: ED Tonsillitis Follow-Up: Azra Patricia PA-C [Primary Care Provider] - Prescriptions: Azithromycin [Zithromax] 250 mg PO DAILY #6 tablet Comments: Nightly, today it looks like the sore throat you are having is related to enl arged cryptic tonsils that are exudative. This can be helped by using a gargle of warm water with a bit of salt in it to wash off the bacteria and pus from the tonsils. We have E scribed some azithromycin to assist your body in fighting off the bacteria and this has been E scribed to the [facility] in [place]. Cryptic exudative tonsillitis is frequently a result of excessive work or loss of sleep. I have given you a note for work for 3 days. Forms: Activity restrictions
[2023-05-06 17:18] LABS: RAPID STREP SCREEN Negative (Negative)
== END 2023-05-06 17:56 | disposition home or self-care (01) ==
LOC: ED 16:55
DX: J03.90 Acute tonsillitis, unspecified (principal)
CPT/HCPCS: 87070; 87077; 87430; 96372; 99283; A9270